=== PATIENT | male | born 1940 | race Caucasian/White ===

== ENCOUNTER → 2019-03-20 | Outpatient (CLI) | payer OTHER ==
[~2019-03-20] MED LIST: ASPIR 8181 MG PO; ATORVASTATIN CA40 MG PO; FLOMAX0.4 MG PO; GLUCOPHAGE XR500 MG PO; HUMULIN N100 UNIT/1 SQ; MAGOX 400400 MG PO; NORCO 10-325 T1 EACH PO; NOVOLIN 70100 UNIT/1 SQ; OXYCODONE HCL 55 MG PO; STOOL SOFTENER100 MG PO; TOPROL XL25 MG PO
== END ==
LOC: M.CT 11:09
DX: G31.9 Degenerative disease of nervous system, unspecified (principal)